=== PATIENT | female | born 1995 | race Caucasian/White ===

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

== ENCOUNTER 2017-02-27 18:00 | Outpatient (CLI) | payer OTHER, SELFPAY ==
[2017-02-27 20:43] LABS: APPEARANCE, URINE HAZY (CLEAR); BACTERIA, URINE AUTO 3+ (NEGATIVE); BILIRUBIN, URINE AUTO NEGATIVE (NEGATIVE); BLOOD, URINE BLOOD NEGATIVE (NEGATIVE); COLOR, URINE YELLOW (YELLOW); GLUCOSE, URINE (UA) AUTO 2+ mg/dL (NEGATIVE); KETONE, URINE AUTO NEGATIVE (NEGATIVE); LEUKOCYTE ESTERASE, URINE AUTO NEGATIVE (NEGATIVE); NITRITE, URINE AUTO NEGATIVE (NEGATIVE); PROTEIN, URINE AUTO NEGATIVE (NEGATIVE); RBC, URINE AUTO 0 /HPF (0-3); SPECIFIC GRAVITY URINE AUTO 1.012 (1.002-1.035); SQUAMOUS EPITHELIAL CELL UR AU 16 /HPF (0-6); UROBILINOGEN, URINE AUTO 0.2 mg/dL (0.0-2.0); WBC, URINE AUTO 1 /HPF (0-3)
== END 2017-02-27 21:15 | disposition home or self-care (01) ==
LOC: M LDO 18:00
DX: O99.89 Other specified diseases and conditions complicating pregnancy, childbirth and the puerperium (principal); W16.212A Fall in (into) filled bathtub causing other injury, initial encounter; R10.9 Unspecified abdominal pain; Z3A.21 21 weeks gestation of pregnancy; Z88.8 Allergy status to other drugs, medicaments and biological substances; Z88.5 Allergy status to narcotic agent
CPT/HCPCS: 81001; G0463

== ENCOUNTER 2017-04-30 12:41 | Outpatient (CLI) | payer OTHER ==
[2017-04-30 13:56] LABS: HEMATOCRIT 31.1 % (36.0-47.0); HEMOGLOBIN 10.6 g/dl (12.0-16.0); MEAN CORPUSCULAR HEMOGLOBIN 31.9 pg (27.0-33.0); MEAN CORPUSCULAR HGB CONC 34.1 g/dl (32.0-36.5); MEAN CORPUSCULAR VOLUME 93.7 fl (80.0-96.0); PLATELET COUNT, AUTOMATED 211 10^3/uL (150-450); RED BLOOD COUNT 3.32 10^6/uL (4.00-5.40); RED CELL DISTRIBUTION WIDTH 12.2 % (11.5-14.5); WHITE BLOOD COUNT 12.6 10^3/uL (4.0-10.0)
[2017-04-30 14:10] LABS: INR 0.93; PROTHROMBIN TIME 12.5 SECONDS (12.4-14.5)
[2017-04-30 14:11] LABS: FIBRINOGEN 398 MG/DL (221-452); PARTIAL THROMBOPLASTIN TIME 26.2 SECONDS (26.8-37.9)
[2017-04-30 16:16] LABS: PLATELET COUNT, AUTOMATED 219 10^3/uL (150-450)
[2017-04-30 16:26] LABS: INR 0.95; PROTHROMBIN TIME 12.7 SECONDS (12.4-14.5)
[2017-04-30 16:27] LABS: FIBRINOGEN 394 MG/DL (221-452); PARTIAL THROMBOPLASTIN TIME 27.1 SECONDS (26.8-37.9)
[2017-04-30 16:30] LABS: D-DIMER QUANT 951.8 ng/ml (<500)
[2017-04-30 21:49] LABS: PLATELET COUNT, AUTOMATED 229 10^3/uL (150-450)
[2017-04-30 22:03] LABS: FIBRINOGEN 372 MG/DL (221-452); INR 0.95; PARTIAL THROMBOPLASTIN TIME 27.5 SECONDS (26.8-37.9); PROTHROMBIN TIME 12.8 SECONDS (12.4-14.5)
[2017-04-30 22:06] LABS: D-DIMER QUANT 929.7 ng/ml (<500)
[2017-05-01 03:55] LABS: PLATELET COUNT, AUTOMATED 186 10^3/uL (150-450)
[2017-05-01 04:08] LABS: INR 0.98; PROTHROMBIN TIME 13.1 SECONDS (12.4-14.5)
[2017-05-01 04:09] LABS: FIBRINOGEN 374 MG/DL (221-452); PARTIAL THROMBOPLASTIN TIME 27.1 SECONDS (26.8-37.9)
[2017-05-01 04:12] LABS: D-DIMER QUANT 1094.9 ng/ml (<500)
[2017-05-01] MEDS: PROMETHAZINE 25 MG TAB PO ×2 (08:52)
[2017-05-01 09:19] LABS: PLATELET COUNT, AUTOMATED 221 10^3/uL (150-450)
[2017-05-01 09:32] LABS: INR 0.92; PROTHROMBIN TIME 12.5 SECONDS (12.4-14.5)
[2017-05-01 09:33] LABS: FIBRINOGEN 379 MG/DL (221-452); PARTIAL THROMBOPLASTIN TIME 25.8 SECONDS (26.8-37.9)
[2017-05-01 09:35] LABS: D-DIMER QUANT 1045.6 ng/ml (<500)
[2017-05-01] MEDS: ONDANSETRON 4MG/2ML VIAL (J2405) IV ×2 (11:16)
[2017-05-01] MEDS: FAMOTIDINE IV BAG 20 MG in APPROPRIATE DILUENT 1 EA IV (11:31)
[2017-05-01] MEDS: LR 1,000 ML IV ×2 (11:31)
[2017-05-01] MEDS ORDERED: ACETAMINOPHEN 500 MG TAB As Ordered ×2 (11:38)
[2017-05-01] MEDS: ACETAMINOPHEN 500 MG TAB PO ×2 (11:45)
[2017-05-01 16:04] LABS: AMPHETAMINES URINE REFLEX NEGATIVE (NEGATIVE); BARBITURATES URINE REFLEX NEGATIVE (NEGATIVE); BENZODIAZEPINES URINE REFLEX NEGATIVE (NEGATIVE); CANNABINOIDS URINE REFLEX NEGATIVE (NEGATIVE); COCAINE METABOLITE URINE REFLE NEGATIVE (NEGATIVE); METHADONE URINE REFLEX NEGATIVE (NEGATIVE); OPIATES URINE REFLEX NEGATIVE (NEGATIVE); PHENCYCLIDINE URINE REFLEX NEGATIVE (NEGATIVE)
== END 2017-05-01 15:25 | disposition home or self-care (01) ==
LOC: M LDO 12:41
DX: O62.3 Precipitate labor (principal); W10.8XXA Fall (on) (from) other stairs and steps, initial encounter; Y92.008 Other place in unspecified non-institutional (private) residence as the place of occurrence of the external cause; Y93.89 Activity, other specified; Y99.8 Other external cause status; Z3A.30 30 weeks gestation of pregnancy
CPT/HCPCS: J2405

== ENCOUNTER 2017-06-14 08:14 | Inpatient (IN) | payer OTHER ==
[2017-06-14 09:38] LABS: HEMATOCRIT 32.4 % (36.0-47.0); HEMOGLOBIN 10.7 g/dl (12.0-15.5); MEAN CORPUSCULAR HEMOGLOBIN 30.1 pg (27.0-33.0); PLATELET COUNT, AUTOMATED 188 10^3/uL (150-450); RED BLOOD COUNT 3.56 10^6/uL (4.00-5.40); RED CELL DISTRIBUTION WIDTH 13.1 % (11.5-14.5); WHITE BLOOD COUNT 9.5 10^3/uL (4.0-10.0)
[2017-06-14 09:55] LABS: AMPHETAMINES URINE REFLEX NEGATIVE (NEGATIVE); BARBITURATES URINE REFLEX NEGATIVE (NEGATIVE); BENZODIAZEPINES URINE REFLEX NEGATIVE (NEGATIVE); CANNABINOIDS URINE REFLEX NEGATIVE (NEGATIVE); COCAINE METABOLITE URINE REFLE NEGATIVE (NEGATIVE); METHADONE URINE REFLEX NEGATIVE (NEGATIVE); OPIATES URINE REFLEX NEGATIVE (NEGATIVE); PHENCYCLIDINE URINE REFLEX NEGATIVE (NEGATIVE)
[2017-06-14] MEDS: miSOPROStol 50 MCG 1/2 TAB (S0191) PO ×4 (10:23→21:47)
[2017-06-15] MEDS: miSOPROStol 50 MCG 1/2 TAB (S0191) PO ×5 (02:00→18:00)
[2017-06-15] MEDS ORDERED: PROMETHAZINE INJ 25 MG/ML VIAL (J2550) As Ordered (12:32)
[2017-06-15] MEDS ORDERED: BUTORPHANOL 2 MG/ML INJ (J0595) As Ordered (12:32)
[2017-06-15] MEDS: BUTORPHANOL 2 MG/ML INJ (J0595) IV (12:50)
[2017-06-15] MEDS: PROMETHAZINE INJ 25 MG/ML VIAL (J2550) IV (12:51)
[2017-06-15] MEDS ORDERED: FENTANYL 2MCG/ML ROPIVACAINE 0.2% IN 0.9% NACL 200ML IVBAG As Ordered (17:02)
[2017-06-15] MEDS ORDERED: diphenhydrAMINE INJ 50MG/ML VIAL (J1200) IV (18:30)
[2017-06-15] MEDS ORDERED: ONDANSETRON 4MG/2ML VIAL (J2405) IV ×2 (18:30→23:45)
[2017-06-15] MEDS ORDERED: EPIDURAL/PCA KEYS XX (18:30)
[2017-06-15] MEDS ORDERED: FENTANYL/ROPIVACAINE/NACL BAG 200 ML EPIDURAL (18:30)
[2017-06-15] MEDS ORDERED: ePHEDrine SULFATE 25 MG/5 ML(5MG/ML) SYRINGE IV (18:30)
[2017-06-15] MEDS ORDERED: REFRIGERATOR IV KEYS XX (18:30)
[2017-06-15] MEDS ORDERED: LACTATED RINGER'S 1000 ML IV (18:30)
[2017-06-15] MEDS ORDERED: NALOXONE INJ 0.4 MG/1 ML VIAL (J2310) IV (18:30)
[2017-06-15] MEDS ORDERED: EPIDURAL COMMENT XX (18:30)
[2017-06-15] MEDS: LR 1,000 ML IV (19:02)
[2017-06-15] MEDS: OXYTOCIN DRIP 30 UNITS in APPROPRIATE DILUENT 1 EA IV (19:02)
[2017-06-15] MEDS ORDERED: METHYLERGONOVINE MALEATE 0.2 MG/ML VIAL (J2210) IM (23:45)
[2017-06-15] MEDS ORDERED: PROMETHAZINE 25 MG TAB PO (23:45)
[2017-06-16] MEDS: OXYTOCIN DRIP 30 UNITS in APPROPRIATE DILUENT 1 EA IV (02:31)
[2017-06-16] MEDS: ACETAMINOPHEN 500 MG TAB PO ×2 (04:12→16:40)
[2017-06-16] MEDS: IBUPROFEN 800 MG TAB PO ×2 (08:42→20:23)
[2017-06-16] MEDS: PRENATAL VITAMINS CHEWABLE TABLET PO (08:43)
[2017-06-16] MEDS: DOCUSATE SODIUM 100 MG CAP PO ×2 (08:43→20:22)
[2017-06-16] MEDS: MEASLES,MUMPS,RUBELLA VACCINE INJ (MMR-II) (90707) SC (09:30)
[2017-06-16] MEDS: RHOGAM 300 MCG (1500 IU) INJ (J2790) IM (09:30)
[2017-06-16] MEDS: DIBUCAINE 1% OINTMENT 30GM TOP (20:23)
[2017-06-17] MEDS: ACETAMINOPHEN 500 MG TAB PO
[2017-06-17] MEDS: IBUPROFEN 800 MG TAB PO (05:49)
[2017-06-17] MEDS: PRENATAL VITAMINS CHEWABLE TABLET PO (07:59)
[2017-06-17] MEDS: DOCUSATE SODIUM 100 MG CAP PO (07:59)
[2017-06-17] MEDS: [UNRECOGNIZED DRUG - OTHER] SC (11:13)
== END 2017-06-17 11:30 | disposition home or self-care (01) | DRG 775 ==
LOC: M LDI 08:14 → M OBS 06-16 01:42
PROVIDERS: Obstetrics & Gynecology
PROC: 3E0P7GC Introduction of Other Therapeutic Substance into Female Reproductive, Via Natural or Artificial Opening (ICD-10-PCS; 2017-06-14)
PROC: 10E0XZZ Delivery of Products of Conception, External Approach (ICD-10-PCS; principal; 2017-06-15)
PROC: 0KQM0ZZ Repair Perineum Muscle, Open Approach (ICD-10-PCS; 2017-06-15)
DX: O26.62 Liver and biliary tract disorders in childbirth (principal); K83.1 Obstruction of bile duct; Z3A.37 37 weeks gestation of pregnancy; O99.62 Diseases of the digestive system complicating childbirth; K21.9 Gastro-esophageal reflux disease without esophagitis; O70.1 Second degree perineal laceration during delivery; Z37.0 Single live birth